=== PATIENT | male | born 1940 | race Caucasian/White ===

== ENCOUNTER 2016-08-12 15:53 | Emergency (ER) | payer OTHER ==
[~2016-08-12] VITALS: Ht 172.7 cm; Wt 72.4 kg
[2016-08-12 15:58] VITALS: BP 165/91; PULSE 56; RESP 16; TEMP 97.8; O2SAT 97
--- NOTE | 2016-08-12 16:06 | PD ---
HPI . sore throat for 2 weeks Chief Complaint: ENT Complaint Time Seen by Provider: 16:06 Travel History International Travel<30 days: No Contact w/Intl Traveler<30days: No Traveled to known affect area: No History of Present Illness HPI 76-year-old male with hypertension, hyperlipidemia and diabetes here with complaints of sore throat for greater than 2 weeks. Patient says he initially started with a cold then he developed sore throat. He says his symptoms have lingered for 2 weeks plus and he describes it as more as a sensation of pain when swallowing. He denies any shortness of breath, dysphasia or trouble talking. He denies any fever or chills. 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 He is looking for some sort of relief until he can return back home. He is accompanied by his . PFSH Past Medical History Hx Anticoagulant Therapy: Yes (81mg asa) Cardiovascular Problems: Yes (htn on meds, [place], triple bypass) Diabetes: Yes (type 2) Social History Tobacco Use: No Allergies-Medications (Allergen,Severity, Reaction): Coded Allergies: No Known Allergies (Unverified , 08/12/16) Reported Meds & Prescriptions Reported Meds & Active Scripts Active Lidocaine Viscous Liq 2 % Liqd 5 Ml SWISH-SWAL QID PRN 10 Days Reported Aspirin EC (Aspirin) 81 Mg Tabdr 81 Mg PO DAILY Metformin (Metformin HCl) 500 Mg Tab 500 Mg PO BIDPC With meals Lisinopril 40 Mg Tab 40 Mg PO DAILY Coreg Cr 24 HR (Carvedilol) 80 Mg Cap 80 Mg PO DAILY Crestor (Rosuvastatin Calcium) 5 Mg Tab 5 Mg PO DAILY Zetia (Ezetimibe) 10 Mg Tab 10 Mg PO DAILY Review of Systems General / Constitutional: No: Fever Eyes: No: Visual changes HENT: Positive: Sore Throat, No: Headaches Cardiovascular: No: Chest Pain or Discomfort Respiratory: No: Shortness of Breath Gastrointestinal: No: Abdominal Pain Genitourinary: No: Dysuria Musculoskeletal: No: Pain Skin: No Rash Neurologic: No: Weakness Psychiatric: No: Depression Endocrine: No: Polydipsia Hematologic/Lymphatic: No: Easy Bruising Physical Exam Narrative GENERAL: AAO x 3, no acute distress, Well-nourished, well-developed patient. SKIN: Warm and dry. No visible rashes or bruising. HEAD: Normocephalic and atraumatic. EYES: No scleral icterus. No injection or drainage. EOM intact, PERRLA ENT: No nasal drainage noted. Mucous membranes pink. Airway patent. No oropharynx abnormality. NECK: Supple, trachea midline. No JVD. No lymphadenopathy. CARDIOVASCULAR: Regular rate and rhythm without murmurs, gallops, or rubs. RESPIRATORY: Breath sounds equal bilaterally. No accessory muscle use. No rhonchi or rales. GASTROINTESTINAL: Visual inspection normal EXTREMITIES: No cyanosis or edema. BACK: No obvious deformity. No CVA tenderness. NEURO: CN II-12 intact, PSYCH: AAO x 3, normal affect. Data Data Last Documented VS Vital Signs Date Time Temp Pulse Resp B/P Pulse Ox O2 Delivery O2 Flow Rate FiO2 08/12/16 15:58 97.8 56 16 165/91 97 MDM Medical Decision Making Medical Screen Exam Complete: Yes Emergency Medical Condition: Yes Medical Record Reviewed: Yes Differential Diagnosis GERD, less likely pharyngitis, HPV, cancer, Narrative Course 76-year-old male here with complaints of pain while swallowing. I have done his examination and patient does not appear to have an infectious process or any oropharynx abnormality. It is possible he could have some GERD versus other issue. I discussed the risk of worse case scenario some sort of malignancy. I recommend outpatient follow-up with molder offbearer for further workup and scoping. I explained to him that he has no airway compromise , difficulty swallowing or eating etc. I do not recommend imaging here in the emergency department. He has no palpable masses or lymphadenopathy in his neck. I'll provide him with some swish and swallow. He tells me he will establish with an molder offbearer once he returns to [place] on Sunday. Patient verbalized understanding of instructions, questions were answered, and thanked me for their care. I advised them if their condition worsens, please return to the nearest emergency room for further care. Diagnosis Primary Impression: Sore throat Patient Instructions: General Instructions Additional Instructions: Please return to emergency department if your symptoms return or worsen. Follow up with your primary care provider. Take medications as prescribed. As we discussed, follow up with the ENT when he returned to [place] this Sunday. If you develop any sudden onset of shortness of breath or difficulty breathing, go to the nearest emergency department. Med/Other Pt SpecificInfo: Prescription(s) given Scripts Lidocaine Viscous Liq 2 % Liqd5 Ml SWISH-SWAL QID PRN (PAIN) 10 Days Ref 0 Prov:Seth Robertson MD 08/12/16 Disposition: 01 DISCHARGE HOME Condition: Stable Kaitlynn Kaufman Aug 12, 2016 16:06
[2016-08-12] MEDS ORDERED: CARV80 PO (16:10)
[2016-08-12] MEDS ORDERED: ROSU5 PO (16:10)
[2016-08-12] MEDS ORDERED: ZETI10TA5 PO (16:10)
[2016-08-12] MEDS ORDERED: LISI40TA PO (16:10)
[2016-08-12] MEDS ORDERED: METF500T PO (16:10)
[2016-08-12] MEDS ORDERED: ASPI81TA11 PO (16:10)
[2016-08-12] MEDS ORDERED: LIDO1SOL8 SWISH-SWAL (16:13)
== END 2016-08-12 16:43 | disposition home or self-care (01) ==
LOC: PHEFT 15:53
DX: J02.9 Acute pharyngitis, unspecified (principal)
CPT/HCPCS: 99283